=== PATIENT | male | born 1975 | race Caucasian/White ===

== ENCOUNTER 2017-11-26 11:20 | Observation (INO) | payer SELFPAY ==
[~2017-11-26] VITALS: Ht 175.3 cm; Wt 82.0 kg
[~2017-11-26 11:20] MED LIST: ALBU8I INH; HYDR-3580 PO; IBUP800 PO
[2017-11-26 11:21] VITALS: BP 172/96; PULSE 89; RESP 17; TEMP 97.6; O2SAT 98
[2017-11-26] MEDS ORDERED: MORPHINE SULFATE 4 MG/ML INJ IV PUSH ONE (11:30)
[2017-11-26] MEDS ORDERED: ONDANSETRON HCL 4 MG/2 ML VIAL IV PUSH ONE (11:30)
[2017-11-26] MEDS ORDERED: XOPEAER4 INH (11:32)
[2017-11-26] MEDS ORDERED: HYDR-3580 PO (11:32)
--- NOTE | 2017-11-26 11:40 | PD ---
HPI Chief Complaint: ENT Complaint Time Seen by Provider: 11:27 Travel History International Travel<30 days: No Contact w/Intl Traveler<30days: No Traveled to known affect area: No History of Present Illness HPI Patient is a 42-year-old male presenting to emergency department for evaluation of pain to his left ear. Patient was sent by urgent care to rule out mastoiditis. Patient states his symptoms started 5 days ago, he reports having a mild head cold. Symptoms started gradually thereafter. Symptom onset was gradual, symptom severity is moderate to severe. Patient denies any fever, chills, nausea, vomiting, headache. He reports his pain is 10 out of 10. PFSH Past Medical History Asthma: Yes Diabetes: No Kidney Stones: Yes Immunizations Current: Yes Past Surgical History Genitourinary Surgery: Yes (LITHROTRIPSY 2009) Thoracic Surgery: Yes (C5, C6) Social History Alcohol Use: Yes (OCCASIONALLY) Tobacco Use: Yes (1 PPD) Substance Use: Yes Allergies-Medications (Allergen,Severity, Reaction): Coded Allergies: latex (Unverified Allergy, Severe, Anaphylaxis, 11/26/17) adhesive (Unverified Allergy, Intermediate, 11/26/17) Uncoded Allergies: CATS (Allergy, Severe, Anaphylaxis, 07/05/16) Reported Meds & Prescriptions Reported Meds & Active Scripts Active Reported Xopenex Hfa 15 GM Inh (Levalbuterol 15 GM Inh) 45 Mcg/Act Aer 45 Mcg INH Q6HR Shake well before using. (1 puff = 45 mcg) Hydrocodone-Acetamin 7.5-325 (Hydrocodone/Acetaminophen) 7.5 Mg-325 Mg Tablet 1 Tab PO Q8HR PRN Review of Systems Except as stated in HPI: all other systems reviewed are Neg General / Constitutional: No: Fever HENT: Positive: Earache, No: Headaches Cardiovascular: No: Chest Pain or Discomfort Respiratory: No: Shortness of Breath Gastrointestinal: No: Nausea, Vomiting, Abdominal Pain Musculoskeletal: Positive: Pain Physical Exam Narrative GENERAL: Well-developed, well-nourished, alert male. Presenting in no acute distress although appears uncomfortable. SKIN: Warm and dry. HEAD: Atraumatic. Normocephalic. EYES: Pupils equal and round. No scleral icterus. No injection or drainage. ENT: No nasal bleeding or discharge. Mucous membranes pink and moist. Bilateral tympanic membranes without erythema. Left outer ear is mildly edematous and erythematous, there is edema and mild erythema noted to the mastoid process and to the left auricle. Significant tenderness palpation over mastoid process on the left. NECK: Trachea midline. No JVD. CARDIOVASCULAR: Regular rate and rhythm. RESPIRATORY: No accessory muscle use. Clear to auscultation. Breath sounds equal bilaterally. Scattered expiratory wheezing in bases. GASTROINTESTINAL: Abdomen soft, non-tender, nondistended. Hepatic and splenic margins not palpable. MUSCULOSKELETAL: Extremities without clubbing, cyanosis, or edema. No obvious deformities. NEUROLOGICAL: Awake and alert. No obvious cranial nerve deficits. Motor grossly within normal limits. Five out of 5 muscle strength in the arms and legs. Normal speech. PSYCHIATRIC: Appropriate mood and affect; insight and judgment normal. Data Data Last Documented VS Vital Signs Date Time Temp Pulse Resp B/P (MAP) Pulse Ox O2 Delivery O2 Flow Rate FiO2 11/26/17 11:21 97.6 89 17 172/96 (121) 98 Orders Orders Complete Blood Count With Diff (11/26/17 11:30) Comprehensive Metabolic Panel (11/26/17 11:30) Iv Access Insert/Monitor (11/26/17 11:30) Morphine Inj (Morphine Inj) (11/26/17 11:30) Ondansetron Inj (Zofran Inj) (11/26/17 11:30) Ibuprofen (Motrin) (11/26/17 11:45) Ct Temporal Bone W Iv Contrast (11/26/17 ) Iohexol 350 Inj (Omnipaque 350 Inj) (11/26/17 12:22) Vancomycin Inj (Vancomycin Inj) (11/26/17 13:30) Consult Ent (11/26/17 ) (Hub Use Only)Inp Phy Cons/Ref (11/26/17 ) Admit To Inpatient (11/26/17 ) Vital Signs (Adult) Q4H (11/26/17 13:48) Activity Oob With Assistance (11/26/17 13:48) Diet Heart Healthy (11/26/17 Lunch) Sodium Chloride 0.9% Flush (Ns Flush) (11/26/17 14:00) Sodium Chloride 0.9% Flush (Ns Flush) (11/26/17 21:00) Acetaminophen (Tylenol) (11/26/17 14:00) Ondansetron Inj (Zofran Inj) (11/26/17 14:00) Scd Bilateral/Knee High PRISCA.BID (11/26/17 13:48) Naloxone Inj (Narcan Inj) (11/26/17 14:00) Magnesium Hydroxide Liq (Milk Of Magnesi (11/26/17 14:00) Sennosides (Senokot) (11/26/17 14:00) Bisacodyl Supp (Dulcolax Supp) (11/26/17 14:00) Inpatient Certification (11/26/17 ) Vancomycin Inj (Vancomycin Inj) (11/26/17 22:00) Vancomycin Consult Pharmacy (Vancomycin (11/26/17 14:00) Admit Order (Ed Use Only) (11/26/17 13:51) Piperacil-Tazo 3.375 Gm Premix (Zosyn 3. (11/26/17 14:00) Labs Laboratory Tests Test 11/26/17 11:46 White Blood Count 10.2 TH/MM3 Red Blood Count 4.68 MIL/MM3 Hemoglobin 17.0 GM/DL Hematocrit 46.8 % Mean Corpuscular Volume 99.9 FL Mean Corpuscular Hemoglobin 36.4 PG Mean Corpuscular Hemoglobin Concent 36.4 % Red Cell Distribution Width 12.7 % Platelet Count 190 TH/MM3 Mean Platelet Volume 9.4 FL Neutrophils (%) (Auto) 68.3 % Lymphocytes (%) (Auto) 21.8 % Monocytes (%) (Auto) 8.4 % Eosinophils (%) (Auto) 0.9 % Basophils (%) (Auto) 0.6 % Neutrophils # (Auto) 6.9 TH/MM3 Lymphocytes # (Auto) 2.2 TH/MM3 Monocytes # (Auto) 0.9 TH/MM3 Eosinophils # (Auto) 0.1 TH/MM3 Basophils # (Auto) 0.1 TH/MM3 CBC Comment AUTO DIFF Differential Comment AUTO DIFF CONFIRMED Blood Urea Nitrogen 7 MG/DL Creatinine 0.79 MG/DL Random Glucose 106 MG/DL Total Protein 7.0 GM/DL Albumin 3.6 GM/DL Calcium Level 8.9 MG/DL Alkaline Phosphatase 92 U/L Aspartate Amino Transf (AST/SGOT) 22 U/L Alanine Aminotransferase (ALT/SGPT) 32 U/L Total Bilirubin 1.3 MG/DL Sodium Level 135 MEQ/L Potassium Level 3.6 MEQ/L Chloride Level 103 MEQ/L Carbon Dioxide Level 27.0 MEQ/L Anion Gap 5 MEQ/L Estimat Glomerular Filtration Rate 108 ML/MIN MDM Medical Decision Making Medical Screen Exam Complete: Yes Emergency Medical Condition: Yes Interpretation(s) Vital Signs Date Time Temp Pulse Resp B/P (MAP) Pulse Ox O2 Delivery O2 Flow Rate FiO2 11/26/17 11:21 97.6 89 17 172/96 (121) 98 Differential Diagnosis Otitis externa versus abscess versus mastoiditis versus other Narrative Course Patient is a 42-year-old male presenting for evaluation of left ear pain. CT scan labs ordered and pending. IV access established, patient declined morphine and requested ibuprofen instead. CT scan shows a multiloculated rim-enhancing mass in the postauricular auricular soft tissues on the left identified characteristic of abscess with surrounding induration and edema of the subcutaneous tissue. Also noted is otitis externa, temporal bone is normal and there is no evidence of mastoiditis. CBC is unremarkable, chemistry with no acute findings. ENT paged. Vancomycin 1 g IV [address] Hess returned page. He stated he would see patient in the morning and to cover him for MRSA regarding abx therapy. Stated possible necrotic lymph node. Dr. Liu accepted admit, orders placed. Diagnosis Primary Impression: Abscess of postauricular region Admitting Information Admitting Physician Requests: Admit Condition: Stable Natacha Le Nov 26, 2017 11:40
[2017-11-26] MEDS ORDERED: IBUPROFEN 800 MG TAB PO ONE (11:45)
[2017-11-26 11:59] LABS: AUTOMATED NEUTROPHIL # 6.9 TH/MM3 (1.8-7.7); BASOPHIL # 0.1 TH/MM3 (0-0.2); BASOPHIL % 0.6 % (0.0-2.0); EOSINOPHIL # 0.1 TH/MM3 (0-0.4); EOSINOPHIL % 0.9 % (0.0-4.0); HEMATOCRIT 46.8 % (39.0-51.0); LYMPH % 21.8 % (9.0-44.0); LYMPHOCYTE # 2.2 TH/MM3 (1.0-4.8); MEAN CELL VOLUME 99.9 FL (80.0-100.0); MEAN CORPUSCULAR HEMOGLOBIN 36.4 PG (27.0-34.0); MEAN CORPUSCULAR HGB CONC 36.4 % (32.0-36.0); MEAN PLATELET VOLUME 9.4 FL (7.0-11.0); MONO % 8.4 % (0.0-8.0); MONOCYTE # 0.9 TH/MM3 (0-0.9); NEUT % 68.3 % (16.0-70.0); PLATELET COUNT 190 TH/MM3 (150-450); RED BLOOD COUNT 4.68 MIL/MM3 (4.50-5.90); RED CELL DISTRIBUTION WIDTH 12.7 % (11.6-17.2); WHITE BLOOD COUNT 10.2 TH/MM3 (4.0-11.0)
[2017-11-26 12:10] LABS: ALBUMIN 3.6 GM/DL (3.4-5.0); ALT (GPT) 32 U/L (12-78); AST (GOT) 22 U/L (15-37); BLOOD UREA NITROGEN 7 MG/DL (7-18); CALCIUM 8.9 MG/DL (8.5-10.1); CHLORIDE 103 MEQ/L (98-107); CREATININE 0.79 MG/DL (0.60-1.30); GLOMERULAR FILTRATION RATE 108 ML/MIN (>89); GLUCOSE,RANDOM 106 MG/DL (74-106); SODIUM (NA) 135 MEQ/L (136-145)
[2017-11-26 12:12] LABS: ALKALINE PHOSPHATASE 92 U/L (45-117); TOTAL BILIRUBIN ADULT 1.3 MG/DL (0.2-1.0)
[2017-11-26] MEDS ORDERED: IOHEXOL 350 MG/ML 10 ML VIAL (for RAD DIAG) IVCONTRAST ONE (12:22)
--- NOTE | 2017-11-26 12:45 | RADRPT ---
EXAM DATE/TIME: 11/26/2017 12:14 [facility] COMPARISON: No previous studies available for comparison. INDICATIONS : Left ear swollen and red, otitis externa; evaluate for mastoiditis. IV CONTRAST: 50 cc Omnipaque 350 (iohexol) IV RADIATION DOSE: 35.59 CTDIvol (mGy) MEDICAL HISTORY : None SURGICAL HISTORY : Chest, lithotripsy ENCOUNTER: Initial ACUITY: 4 - 6 days PAIN SCALE: 7/10 LOCATION: Left ear TECHNIQUE: Volumetric scanning of the temporal bone was performed. Using automated exposure control and adjustm ent of the mA and/or kV according to patient size, radiation dose was kept as low as reasonably achie vable to obtain optimal diagnostic quality images. DICOM format image data is available electronicall y for review and comparison. FINDINGS: OSSICLES: The ossicles are intact. The oval window niche is intact. MASTOID AIR CELLS: Well aerated. No sclerotic or opacified air cells are seen. The aditus is intact. MIDDLE EAR: The epitympanum and hypotympanum are intact. Prussak's space and scutum are intact. The oval and rou nd window is intact. LABYRINTH: The cochlea and semicircular canals are normal in configuration without sclerosis. INTERNAL ACOUSTIC CANAL: Normal in size without erosion. The cerebellar-pontine angle is intact. JUGULAR FOSSA: Normal in size and position. FACIAL CANAL: The tympanic, genu and descending portions are intact. EXTERNAL ACOUSTIC CANAL: The bony and cartilaginous portions are intact. There is some soft tissue thickening of the external auditory canal superiorly extending medially to the medial aspect of the EAC. This is consistent with the history of otitis externa. There is a multiloculated rim-enhancing mass just lateral to the left mastoid and postauricular region with surrounding edema and stranding of the subcutaneous fat. This measures 3.3 x 2.5 cm in AP and transverse dimension on axial image 46 of series 4. It extends inferi yesica and is just posterior to the superior margin of the parotid gland. This is consistent with absce ss. OTHER: There are posterior changes and postsurgical changes of the left maxillary sinus status post antrosto my and uncinectomy with circumferential mucosal thickening identified. The paranasal sinuses are othe rwise well aerated. CONCLUSION: 1. A multiloculated rim-enhancing mass in the postauricular and periauricular soft tissues on the lef t identified characteristic of abscess with surrounding induration and edema of the subcutaneous tiss ues. 2. Otitis externa. 3. The temporal bone is normal. There is no evidence for mastoiditis. Amador Dangelo MD on November 26, 2017 at 12:39 Board Certified Radiologist. This report was verified electronically.
[2017-11-26] MEDS ORDERED: VANCOMYCIN INJ 1,000 MG in SODIUM CHLOR 0.9% 250 ML INJ 250 ML IV ONE (13:30)
[2017-11-26] MEDS ORDERED: PIPERACIL-TAZO 3.375 GM PREMIX 50 ML IV ONE (14:00)
[2017-11-26] MEDS ORDERED: BISACODYL 10 MG SUPP RECTAL PRN ×2 (14:00→14:30)
[2017-11-26] MEDS ORDERED: MAGNESIUM HYDROXIDE SUSP 30 ML CUP PO PRN ×2 (14:00→14:30)
[2017-11-26] MEDS ORDERED: SENNOSIDES 8.6 MG TAB PO PRN ×2 (14:00→14:30)
[2017-11-26] MEDS ORDERED: NALOXONE HCL 0.4 MG/ML AMP IV PUSH PRN ×2 (14:00→14:30)
[2017-11-26] MEDS ORDERED: ACETAMINOPHEN 325 MG TAB PO PRN ×2 (14:00→14:30)
[2017-11-26] MEDS ORDERED: ONDANSETRON HCL 4 MG/2 ML VIAL IVP PRN ×2 (14:00→14:30)
[2017-11-26] MEDS ORDERED: SODIUM CHLORIDE 0.9% FLUSH 10 ML FLUSH IV FLUSH PRN ×2 (14:00→14:30)
[2017-11-26] MEDS ORDERED: Vancomycin Consult Pharmacy 1 EA OTHER SCH ×2 (14:00→14:30)
--- NOTE | 2017-11-26 14:32 | HHI.HP ---
[facility] No Primary Care Physician Admission Diagnosis Postauricular abscess Diagnoses: Chief Complaint: Left ear pain Travel History International Travel<30 Days: No Contact w/Intl Traveler <30 Da: No Traveled to Known Affected Are: No History of Present Illness This is a 42-year-old male past medical history of asthma who presented with left ear pain. Patient stated that about 4 days ago he had some allergic rhinitis and sinus issues that he thought got better. Unfortunately he stated that his left ear pain continued so went to goes to urgent care and was told to come to the hospital for possible mastoiditis. Patient denies any fevers or chills. Denies any discharge from the ear. He stated that there is left ear pain and swelling. Patient has no other complaints. All other review of system reviewed and negative. Past Family Social History Past Medical History Asthma, persistent Past Surgical History Cervical surgery Left ankle surgery Left knee surgery Spinal surgery Reported Medications Reported Xopenex Hfa 15 GM Inh (Levalbuterol 15 GM Inh) 45 Mcg/Act Aer 45 Mcg INH Q6HR Shake well before using. (1 puff = 45 mcg) Hydrocodone-Acetamin 7.5-325 (Hydrocodone/Acetaminophen) 7.5 Mg-325 Mg Tablet 1 Tab PO Q8HR PRN Allergies: Coded Allergies: latex (Unverified Allergy, Severe, Anaphylaxis, 11/26/17) adhesive (Unverified Allergy, Intermediate, 11/26/17) Uncoded Allergies: CATS (Allergy, Severe, Anaphylaxis, 07/05/16) Active Ordered Medications Current Medications Morphine Sulfate (Morphine Inj) 4 mg ONCE ONCE IV PUSH ; Start 11/26/17 at 11:30 ; Stop 11/26/17 at 14:11; Status DC Ondansetron HCl (Zofran Inj) 4 mg ONCE ONCE IV PUSH ; Start 11/26/17 at 11:30; Stop 11/26/17 at 14:11; Status DC Ibuprofen (Motrin) 800 mg ONCE ONCE PO Last administered on 11/26/17at 11:54; Start 11/26/17 at 11:45; Stop 11/26/17 at 14:11; Status DC Iohexol (Omnipaque 350 Inj) 50 ml STK-MED ONCE IVCONTRAST Last administered on 11/26/17at 12:22; Start 11/26/17 at 12:22; Stop 11/26/17 at 14:11; Status DC Vancomycin HCl 1000 mg/Sodium Chloride 250 ml @ 250 mls/hr ONCE ONCE IV Last administered on 11/26/17at 14:02; Start 11/26/17 at 13:30; Stop 11/26/17 at 14:11; Status DC Sodium Chloride (NS Flush) 2 ml UNSCH PRN IV FLUSH FLUSH AFTER USING IV ACCESS ; Start 11/26/17 at 14:00; Stop 11/26/17 at 14:11; Status DC Sodium Chloride (NS Flush) 2 ml BID IV FLUSH ; Start 11/26/17 at 21:00; Stop 11/26 at 21:00; Status DC Acetaminophen (Tylenol) 650 mg Q4H PRN PO TEMP > 100.4; Start 11/26/17 at 14:00 ; Stop 11/26/17 at 14:11; Status DC Ondansetron HCl (Zofran Inj) 4 mg Q6H PRN IVP NAUSEA OR VOMITING; Start at 14:00; Stop 11/26/17 at 14:11; Status DC Naloxone HCl (Narcan Inj) 0.4 mg UNSCH PRN IV PUSH SEE LABEL COMMENTS; Start at 14:00; Stop 11/26/17 at 14:11; Status DC Magnesium Hydroxide (Milk Of Magnesia Liq) 30 ml Q12H PRN PO Mild constipation ; Start 11/26/17 at 14:00; Stop 11/26/17 at 14:11; Status DC Sennosides (Senokot) 17.2 mg Q12H PRN PO Moderate constipation; Start 11/26/17 at 14:00; Stop 11/26/17 at 14:11; Status DC Bisacodyl (Dulcolax Supp) 10 mg DAILY PRN RECTAL SEVERE CONSITIPATION; Start at 14:00; Stop 11/26/17 at 14:11; Status DC Vancomycin HCl 1000 mg/Sodium Chloride 250 ml @ 250 mls/hr Q12H IV ; Start 11/27 at 02:00; Stop 11/27/17 at 02:00; Status DC Pharmacy Profile Note 0 ml @ 0 mls/hr UNSCH OTHER ; Start 11/26/17 at 14:00; Stop 11/26/17 at 14:11; Status DC Piperacillin Sod/ Tazobactam Sod 50 ml @ 100 mls/hr ONCE ONCE IV ; Start at 14:00; Stop 11/26/17 at 14:11; Status DC Family History Mother history of neck cancer. Dad had a history of esophageal cancer. Social History Smokes 1.5 packs per day since the age of [age] years old. Denies any alcohol or illicit drug use. Physical Exam Vital Signs Vital Signs Date Time Temp Pulse Resp B/P (MAP) Pulse Ox O2 Delivery O2 Flow Rate FiO2 11/26/17 11:21 97.6 89 17 172/96 (121) 98 Physical Exam GENERAL: This is a well-nourished, well-developed patient, in no apparent distress. SKIN: No rashes, ecchymoses or lesions. Cool and dry. HEAD: Atraumatic. Normocephalic. No temporal or scalp tenderness. EYES: Pupils equal round and reactive. Extraocular motions intact. No scleral icterus. No injection or drainage. ENT: Nose without bleeding, purulent drainage or septal hematoma. Throat without erythema, tonsillar hypertrophy or exudate. Uvula midline. Airway patent. B/L OM WNL clear. Bilateral external ear canal no discharge. Mild erythema in the left ear canal. Swelling and erythema with induration in the periauricular area. NECK: Trachea midline. No JVD or lymphadenopathy. Supple, nontender, no meningeal signs. CARDIOVASCULAR: Regular rate and rhythm without murmurs, gallops, or rubs. RESPIRATORY: Clear to auscultation. Breath sounds equal bilaterally. No wheezes , rales, or rhonchi. GASTROINTESTINAL: Abdomen soft, non-tender, nondistended. No hepato-splenomegaly , or palpable masses. No guarding. MUSCULOSKELETAL: Extremities without clubbing, cyanosis, or edema. No joint tenderness, effusion, or edema noted. No calf tenderness. Negative Homans sign bilaterally. NEUROLOGICAL: Awake and alert. Cranial nerves II through XII intact. Motor and sensory grossly within normal limits. Five out of 5 muscle strength in all muscle groups. Normal speech. Laboratory Laboratory Tests Test 11/26/17 11:46 White Blood Count 10.2 Red Blood Count 4.68 Hemoglobin 17.0 Hematocrit 46.8 Mean Corpuscular Volume 99.9 Mean Corpuscular Hemoglobin 36.4 Mean Corpuscular Hemoglobin Concent 36.4 Red Cell Distribution Width 12.7 Platelet Count 190 Mean Platelet Volume 9.4 Neutrophils (%) (Auto) 68.3 Lymphocytes (%) (Auto) 21.8 Monocytes (%) (Auto) 8.4 Eosinophils (%) (Auto) 0.9 Basophils (%) (Auto) 0.6 Neutrophils # (Auto) 6.9 Lymphocytes # (Auto) 2.2 Monocytes # (Auto) 0.9 Eosinophils # (Auto) 0.1 Basophils # (Auto) 0.1 CBC Comment AUTO DIFF Differential Comment AUTO DIFF CONFIRMED Blood Urea Nitrogen 7 Creatinine 0.79 Random Glucose 106 Total Protein 7.0 Albumin 3.6 Calcium Level 8.9 Alkaline Phosphatase 92 Aspartate Amino Transf (AST/SGOT) 22 Alanine Aminotransferase (ALT/SGPT) 32 Total Bilirubin 1.3 Sodium Level 135 Potassium Level 3.6 Chloride Level 103 Carbon Dioxide Level 27.0 Anion Gap 5 Estimat Glomerular Filtration Rate 108 Result Diagram: 11/26/17 1146 11/26/17 1146 Imaging Last Impressions Temporal Bone CT 11/26/17 0000 Signed Impressions: Service Date/Time: Sunday, November 26, 2017 12:14 - CONCLUSION: 1. A multiloculated rim-enhancing mass in the postauricular and periauricular soft tissues on the left identified characteristic of abscess with surrounding induration and edema of the subcutaneous tissues. 2. Otitis externa. 3. The temporal bone is normal. There is no evidence for mastoiditis. Amador Dangelo MD Caprini VTE Risk Assessment Caprini VTE Risk Assessment: No/Low Risk (score <= 1) Caprini Risk Assessment Model Point Value = 1 Point Value = 2 Point Value = 3 Point Value = 5 Age 41-60 Minor surgery BMI > 25 kg/m2 Swollen legs Varicose veins or History of unexplained or recurrent spontaneous Oral contraceptives or hormone replacement Sepsis (< 1 month) Serious lung disease, including pneumonia (< 1 month) Abnormal pulmonary function Acute myocardial infarction Congestive heart failure (< 1 month) History of inflammatory bowel disease Medical patient at bed rest Age 61-74 Arthroscopic surgery Major open surgery (> 45 min) Laparoscopic surgery (> 45 min) Malignancy Confined to bed (> 72 hours) Immobilizing plaster cast Central venous access Age >= 75 History of VTE Family history of VTE Factor V Leiden Prothrombin [id number] Lupus anticoagulant Anticardiolipin antibodies Elevated serum homocysteine Heparin-induced thrombocytopenia Other congenital or acquired thrombophilia Stroke (< 1 month) Elective arthroplasty Hip, pelvis, or leg fracture Acute spinal cord injury (< 1 month) Prophylaxis Regimen Total Risk Factor Score Risk Level Prophylaxis Regimen 0-1 Low Early ambulation 2 Moderate Order ONE of the following: *Sequential Compression Device (SCD) *Heparin 5000 units SQ BID 3-4 Higher Order ONE of the following medications: *Heparin 5000 units SQ TID *Enoxaparin/Lovenox 40 mg SQ daily (WT < 150 kg, CrCl > 30 mL/min) *Enoxaparin/Lovenox 30 mg SQ daily (WT < 150 kg, CrCl > 10-29 mL/min) *Enoxaparin/Lovenox 30 mg SQ BID (WT < 150 kg, CrCl > 30 mL/min) AND/OR *Sequential Compression Device (SCD) 5 or more Highest Order ONE of the following medications: *Heparin 5000 units SQ TID (Preferred with Epidurals) *Enoxaparin/Lovenox 40 mg SQ daily (WT < 150 kg, CrCl > 30 mL/min) *Enoxaparin/Lovenox 30 mg SQ daily (WT < 150 kg, CrCl > 10-29 mL/min) *Enoxaparin/Lovenox 30 mg SQ BID (WT < 150 kg, CrCl > 30 mL/min) AND *Sequential Compression Device (SCD) Assessment and Plan Assessment and Plan This is a 42-year-old male came in with left ear pain Left periauricular/post auricular abscess/cellulitis -CT scan shows a multiloculated ring enhancing mass in the post auricular and periauricular soft tissue on the left identify characteristic of an abscess with soft tissue swelling/edema. -Patient has no white count or fevers. -He was given a dose of vancomycin and Zosyn in the ED. Dr. Hess ENT notified by ED provider Natacha in which he stated that he will see patient tomorrow morning and to cover for MRSA. -Continue vancomycin. Will have pharmacist dose medication. Persistent asthma -Patient uses Xopenex 1-2 times a day. He stated that he has been on maintenance therapy but does not feel like they work for him. Tobacco dependence -Smoking cessation. Declined nicotine replacement. DVT prophylaxis -Low risk. Encourage ambulation. SCDs. Discussed Condition With patient Mildred Liu MD Nov 26, 2017 14:32
[2017-11-26] MEDS ORDERED: ACETAMINOPHEN/HYDROcodone 325 MG/5 MG TAB PO PRN (14:45)
[2017-11-26 15:00] VITALS: BP 144/83; PULSE 79; RESP 19; O2SAT 97
[2017-11-26] MEDS: SODIUM CHLOR 0.45% 1000 ML INJ 1,000 ML IV SCH (15:39)
[2017-11-26] MEDS: ACETAMINOPHEN/HYDROcodone 325 MG/5 MG TAB PO PRN ×2 (16:56→20:05)
[2017-11-26 20:18] VITALS: BP 154/90; PULSE 87; RESP 18; O2SAT 95
[2017-11-26] MEDS: SODIUM CHLORIDE 0.9% FLUSH 10 ML FLUSH IV FLUSH SCH (20:54)
[2017-11-26] MEDS ORDERED: SODIUM CHLORIDE 0.9% FLUSH 10 ML FLUSH IV FLUSH SCH (21:00)
[2017-11-26] MEDS: VANCOMYCIN INJ 1,000 MG in SODIUM CHLOR 0.9% 250 ML INJ 250 ML IV SCH (21:04)
--- NOTE | 2017-11-26 23:13 | HHI.PR ---
Subjective Remarks NOT SEEN Objective Vitals Vital Signs Date Time Temp Pulse Resp B/P (MAP) Pulse Ox O2 Delivery O2 Flow Rate FiO2 11/26/17 21:07 18 11/26/17 20:18 87 18 154/90 (111) 95 11/26/17 15:52 11/26/17 15:00 79 19 144/83 (103) 97 Room Air 11/26/17 11:21 97.6 89 17 172/96 (121) 98 I/O 11/26/17 11/26/17 11/26/17 11/27/17 11/27/17 11/27/17 07:00 15:00 23:00 07:00 15:00 23:00 Intake Total 250 ml Balance 250 ml Intake IV Total 250 ml Result Diagram: 11/26/17 1146 11/26/17 1146 Imaging Last Impressions Temporal Bone CT 11/26/17 0000 Signed Impressions: Service Date/Time: Sunday, November 26, 2017 12:14 - CONCLUSION: 1. A multiloculated rim-enhancing mass in the postauricular and periauricular soft tissues on the left identified characteristic of abscess with surrounding induration and edema of the subcutaneous tissues. 2. Otitis externa. 3. The temporal bone is normal. There is no evidence for mastoiditis. Amador Dangelo MD Objective Remarks GENERAL: This is a well-nourished, well-developed patient, in no apparent distress. SKIN: No rashes, ecchymoses or lesions. Cool and dry. HEAD: Atraumatic. Normocephalic. No temporal or scalp tenderness. EYES: Pupils equal round and reactive. Extraocular motions intact. No scleral icterus. No injection or drainage. ENT: Nose without bleeding, purulent drainage or septal hematoma. Throat without erythema, tonsillar hypertrophy or exudate. Uvula midline. Airway patent. B/L OM WNL clear. Bilateral external ear canal no discharge. Mild erythema in the left ear canal. Swelling and erythema with induration in the periauricular area. NECK: Trachea midline. No JVD or lymphadenopathy. Supple, nontender, no meningeal signs. CARDIOVASCULAR: Regular rate and rhythm without murmurs, gallops, or rubs. RESPIRATORY: Clear to auscultation. Breath sounds equal bilaterally. No wheezes , rales, or rhonchi. GASTROINTESTINAL: Abdomen soft, non-tender, nondistended. No guarding. MUSCULOSKELETAL: Extremities without clubbing, cyanosis, or edema. No joint tenderness, effusion, or edema noted. No calf tenderness. Negative Homans sign bilaterally. NEUROLOGICAL: Awake and alert. Cranial nerves II through XII intact. Motor and sensory grossly within normal limits. Five out of 5 muscle strength in all muscle groups. Normal speech. A/P Problem List: (1) Abscess of postauricular region ICD Code: L02.811 - Cutaneous abscess of head [any part, except face] Status: Acute Assessment and Plan This is a 42-year-old male came in with left ear pain Left periauricular/post auricular abscess/cellulitis -CT scan shows a multiloculated ring enhancing mass in the post auricular and periauricular soft tissue on the left identify characteristic of an abscess with soft tissue swelling/edema. -Patient has no white count or fevers. -He was given a dose of vancomycin and Zosyn in the ED. Dr. Hess ENT notified by ED provider Natacha in which he stated that he will see patient tomorrow morning and to cover for MRSA. -Continue vancomycin. Will have pharmacist dose medication. Persistent asthma -Patient uses Xopenex 1-2 times a day. He stated that he has been on maintenance therapy but does not feel like they work for him. Tobacco dependence -Smoking cessation. Declined nicotine replacement. DVT prophylaxis -Low risk. Encourage ambulation. SCDs. Wagner Johnson MD Nov 26, 2017 23:13
[2017-11-26] MEDS ORDERED: RESP: ALBUTEROL 0.63 MG/3 ML NEB (PRN) NEB (23:15)
[2017-11-26 23:46] VITALS: BP 144/91; PULSE 77; RESP 18; TEMP 98; O2SAT 96
[2017-11-27] MEDS ORDERED: LEVALBUTEROL 45 MCG INH SCH
[2017-11-27] MEDS ORDERED: VANCOMYCIN INJ 1,000 MG in SODIUM CHLOR 0.9% 250 ML INJ 250 ML IV SCH (02:00)
[2017-11-27 03:26] VITALS: BP 143/91; PULSE 80; RESP 18; TEMP 98.5; O2SAT 98
[2017-11-27] MEDS: ACETAMINOPHEN/HYDROcodone 325 MG/5 MG TAB PO PRN ×3 (05:00→09:44)
[2017-11-27] MEDS: SODIUM CHLOR 0.45% 1000 ML INJ 1,000 ML IV SCH (05:00)
[2017-11-27 08:00] VITALS: BP 146/94; PULSE 78; RESP 18; TEMP 97.2; O2SAT 96
[2017-11-27] MEDS ORDERED: MORPHINE SULFATE 2 MG/ML INJ IV ONE (08:30)
--- NOTE | 2017-11-27 09:35 | MB ---
cc: Angel Hess MD DATE OF CONSULT: CHIEF COMPLAINT: Left ear pain. HISTORY OF PRESENT ILLNESS: This is a 42-year-old male with significant worsening left ear pain over the last few days. He noticed yesterday evening it got significantly swollen and is very tender and painful to the touch and therefore went to the emergency room. On workup in the emergency room, he was noted to have a questionable postauricular abscess and otitis externa. The patient had been tried on antibiotics from the urgent care, but at this point the worsening pain was significant enough to bring him in to the emergency room PAST MEDICAL HISTORY, PAST SURGICAL HISTORY, FAMILY HISTORY, ALLERGIES AND MEDICATIONS: Were reviewed per the chart. PHYSICAL EXAMINATION: Today, the patient is alert and oriented x 3, in no acute distress. He has significant pain along his left ear. HEENT: He shows mostly a face left postauricular crease inferiorly. The mastoid tip itself is actually firm and nontender, but his auricle as well as the postauricular area is very tender. There is some purulent kind of a head to the left postauricular area. The external auditory canal is slightly edematous. CT scan reviewed, showed a left multiloculated postauricular soft tissue fluid collection. The mastoid tip and bone was intact. There was no bony erosion noted. ASSESSMENT AND PLAN: Patient with what I suspect to be an insect bite of the left postauricular area. A small incision and drainage was performed of this today at bedside. The patient tolerated it well. Approximately 2 mL of pus was evacuated. The patient did well with this. At this time, I have recommended that he get 24 hours total of intravenous antibiotic as well as discharge with Bactrim DS and follow up at the ENT clinic this week for further evaluation and treatment options. Angel Hess MD ATT/TI , 09:04 AM , 09:34 AM
[2017-11-27] MEDS: SODIUM CHLORIDE 0.9% FLUSH 10 ML FLUSH IV FLUSH SCH (10:27)
[2017-11-27] MEDS: VANCOMYCIN INJ 1,000 MG in SODIUM CHLOR 0.9% 250 ML INJ 250 ML IV SCH (10:27)
--- NOTE | 2017-11-27 12:41 | HHI.PR ---
Subjective Remarks Follow-up left ear cellulitis/abscess. Tolerated bedside I and D. He wants to go home. Discussed with nursing Objective Vitals Vital Signs Date Time Temp Pulse Resp B/P (MAP) Pulse Ox O2 Delivery O2 Flow Rate FiO2 11/27/17 08:00 97.2 78 18 146/94 (111) 96 11/27/17 06:02 18 11/27/17 03:26 98.5 80 18 143/91 (108) 98 11/26/17 23:46 98.0 77 18 144/91 (108) 96 11/26/17 20:18 87 18 154/90 (111) 95 11/26/17 15:52 11/26/17 15:00 79 19 144/83 (103) 97 Room Air I/O 11/26/17 11/26/17 11/26/17 11/27/17 11/27/17 11/27/17 07:00 15:00 23:00 07:00 15:00 23:00 Intake Total 250 ml 2300 ml 250 ml Balance 250 ml 2300 ml 250 ml Intake Oral 300 ml IV Total 250 ml 2000 ml 250 ml Result Diagram: 11/26/17 1146 11/26/17 1146 Imaging Last Impressions Temporal Bone CT 11/26/17 0000 Signed Impressions: Service Date/Time: Sunday, November 26, 2017 12:14 - CONCLUSION: 1. A multiloculated rim-enhancing mass in the postauricular and periauricular soft tissues on the left identified characteristic of abscess with surrounding induration and edema of the subcutaneous tissues. 2. Otitis externa. 3. The temporal bone is normal. There is no evidence for mastoiditis. Amador Dangelo MD Objective Remarks GENERAL: This is a well-nourished, well-developed patient, in no apparent distress. SKIN: No rashes, ecchymoses or lesions. Cool and dry. HEAD: Atraumatic. Normocephalic. No temporal or scalp tenderness. EYES: Pupils equal round and reactive. Extraocular motions intact. No scleral icterus. No injection or drainage. ENT: Nose without bleeding, purulent drainage or septal hematoma. Throat without erythema, tonsillar hypertrophy or exudate. Uvula midline. Airway patent. B/L OM WNL clear. Bilateral external ear canal no discharge. Mild erythema in the left ear canal. Swelling and erythema with induration in the periauricular area. NECK: Trachea midline. No JVD or lymphadenopathy. Supple, nontender, no meningeal signs. CARDIOVASCULAR: Regular rate and rhythm without murmurs, gallops, or rubs. RESPIRATORY: Clear to auscultation. Breath sounds equal bilaterally. No wheezes , rales, or rhonchi. GASTROINTESTINAL: Abdomen soft, non-tender, nondistended. No guarding. MUSCULOSKELETAL: Extremities without clubbing, cyanosis, or edema. No joint tenderness, effusion, or edema noted. No calf tenderness. Negative Homans sign bilaterally. NEUROLOGICAL: Awake and alert. Cranial nerves II through XII intact. Motor and sensory grossly within normal limits. Five out of 5 muscle strength in all muscle groups. Normal speech. Procedures Bedside incision and drainage of left pinna abscess A/P Problem List: (1) Abscess of postauricular region ICD Code: L02.811 - Cutaneous abscess of head [any part, except face] Status: Acute Assessment and Plan This is a 42-year-old male came in with left ear pain Left periauricular/post auricular abscess/cellulitis/OE status post bedside incision and drainage. He is stable continue pain management consult regarding narcotics and antimicrobials. ENT recommended IV vancomycin for a total of 24 hours then discharged on Bactrim follow-up with ENT this week. Persistent asthma. Stable Tobacco dependence. Stable DVT prophylaxis. Low risk. Encourage ambulation. SCDs. Discharge Planning Discharge patient to home Condition on discharge: Improved Regular Diet as tolerated Ad Nuha activity no driving Rx written: Bactrim Follow-up with primary care physician and ENT Wagner Johnson MD Nov 27, 2017 12:41 Gary Gabriel Nov 27, 2017 13:14
[2017-11-27] MEDS ORDERED: BACT800T5 PO (13:01)
--- NOTE | 2017-11-27 13:02 | HHI.DCPOC ---
Discharge Care Plan Diagnosis: (1) Abscess of postauricular region (2) Tobacco use Your Health Problems Are: Anxiety Inflammation Swelling Goals to Promote Your Health * To prevent worsening of your condition and complications * To maintain your health at the optimal level Directions to Meet Your Goals Take your medications as prescribed Follow your dietary instruction Follow activity as directed Keep your appointments as scheduled Take your immunizations and boosters as scheduled If your symptoms worsen call your PCP, if no PCP go to Urgent Care Center or Emergency Room Smoking is Dangerous to Your Health. Avoid second hand smoke Call the 24-hour hour crisis hotline for domestic abuse at Gary Gabriel Nov 27, 2017 1:02 pm
[2017-11-27] MEDS ORDERED: HYDR-3578 PO (13:38)
[2017-11-28] MEDS ORDERED: PHARMACY ORDERED LAB ONE (09:45)
== END 2017-11-27 14:18 | disposition home or self-care (01) ==
LOC: NEPE 11:20 → NEDA 13:53 → INTOOBSV 13:53 → NEPHCDU 16:50
PROVIDERS: ADMIT Internal Medicine; ATTEND Internal Medicine
DX: H60.02 Abscess of left external ear (principal); H60.12 Cellulitis of left external ear; F41.9 Anxiety disorder, unspecified; J45.909 Unspecified asthma, uncomplicated; F17.210 Nicotine dependence, cigarettes, uncomplicated; Z87.442 Personal history of urinary calculi
CPT/HCPCS: 70481; 80053; 85025; 96361; 96365; 96366; 96375; 96376; G0378; J2270; J3370; J7050; Q9967

== ENCOUNTER 2018-03-14 10:07 | Emergency (ER) | payer SELFPAY ==
[~2018-03-14] VITALS: Ht 175.3 cm; Wt 87.0 kg
[~2018-03-14 10:07] MED LIST changes: -ALBU8I INH; +BACT800T5 PO; +HYDR-3578 PO; -HYDR-3580 PO; -IBUP800 PO; +XOPEAER4 INH
[2018-03-14 10:09] VITALS: BP 163/106; PULSE 101; RESP 16; TEMP 98.3; O2SAT 98
[2018-03-14] MEDS ORDERED: PROM12.54 PO (10:55)
[2018-03-14] MEDS ORDERED: CIPR500T2 PO (10:55)
[2018-03-14] MEDS ORDERED: SYMB160A INH (10:55)
[2018-03-14] MEDS ORDERED: SODIUM CHLOR 0.9% 1000 ML INJ 1,000 ML IV SCH (11:06)
[2018-03-14] MEDS ORDERED: SODIUM CHLORIDE 0.9% FLUSH 10 ML FLUSH IV FLUSH PRN (11:15)
--- NOTE | 2018-03-14 11:50 | PD ---
HPI Chief Complaint: General Weakness Time Seen by Provider: 11:12 Travel History International Travel<30 days: No Contact w/Intl Traveler<30days: No Traveled to known affect area: No History of Present Illness HPI 42-year-old male presents emergency department with generalized weakness, body aches, and recent nausea and vomiting diarrhea, as well as cough. Patient states he was seen by his primary care physician 3 days ago, and had a chest x-ray, which he reports was negative. Patient was placed on Cipro 500 mg twice daily for 10 days as well as prednisone, and Phenergan for his abdominal symptoms. Patient states his abdominal symptoms are improved, now he has a normal appetite, and denies nausea, vomiting, or diarrhea. He continues to have abdominal cramps, but he states overall that is improved. His chief complaint today is generalized body aches, headache, and dizziness. Pain is currently 8 out of 10. He has no specific point of pain. He does have headache in the right posterior head. Patient has history of bilateral postauricular abscesses in the past several months. Patient denies IV drug use. He denies recent travel. He denies significant fever. He does state he has 3 drinks daily. He states his cough is nonproductive. He is a smoker. He is allergic to cats, adhesive, latex. PFSH Past Medical History Asthma: Yes Anxiety: Yes Depression: Yes Cancer: No Cardiovascular Problems: No Diabetes: No Diminished Hearing: No Gastrointestinal Disorders: Yes Gout: Yes Genitourinary: Yes (kindey stones) Immune Disorder: No Kidney Stones: Yes Musculoskeletal: Yes Neurologic: No Psychiatric: No Reproductive: No Respiratory: Yes Immunizations Current: Yes Past Surgical History Genitourinary Surgery: Yes (LITHROTRIPSY 2009) Oral Surgery: Yes Thoracic Surgery: Yes Other Surgery: Yes (dental) Social History Alcohol Use: Yes (2-3 drinks daily) Tobacco Use: Yes (1 PPD) Substance Use: No Allergies-Medications (Allergen,Severity, Reaction): Coded Allergies: latex (Unverified Allergy, Severe, Anaphylaxis, 03/14/18) adhesive (Unverified Allergy, Intermediate, 03/14/18) Uncoded Allergies: CATS (Allergy, Severe, Anaphylaxis, 07/05/16) Reported Meds & Prescriptions Reported Meds & Active Scripts Active Lorcet Hd 10-325 mg (Hydrocodone-Acetaminophen) 10 Mg-325 Mg Tab 1 Tab PO Q6H PRN Reported Symbicort Inh (Budesonide/Formoterol Fumarate) 160-4.5 Mcg/Act Aero 1 Puff INH Q12HR Ciprofloxacin (Ciprofloxacin HCl) 500 Mg Tab 500 Mg PO BID 7 Days Promethazine (Promethazine HCl) 12.5 Mg Tab 25 Mg PO BID PRN Review of Systems Except as stated in HPI: all other systems reviewed are Neg General / Constitutional: Positive: Chills, No: Fever Eyes: No: Visual changes HENT: Positive: Headaches, Lightheadedness, No: Vertigo, Sore Throat, Rhinitis , Rhinorrhea, Congestion, Nosebleed, Neck Stiffness, Neck Pain, Dental Difficulties, Earache Cardiovascular: No: Chest Pain or Discomfort Respiratory: Positive: Cough, No: Shortness of Breath, Wheezing Gastrointestinal: Positive: Abdominal Pain, No: Nausea, Vomiting, Diarrhea, Indigestion, Dysphagia, Loss of Appetite (Mild cramping) Genitourinary: No: Urgency, Frequency, Dysuria Musculoskeletal: Positive: Myalgias, No: Arthralgias, Limited ROM, Pain Skin: No Rash Neurologic: No: Weakness Psychiatric: No: Depression Endocrine: No: Polydipsia Hematologic/Lymphatic: No: Easy Bruising Physical Exam Narrative GENERAL: Patient appears in no obvious distress. SKIN: Warm and dry. Normal color. Normal turgor. No rash. No signs of IV drug use. HEAD: Atraumatic. Normocephalic. Patient has no reproducible pain with palpation or percussion. EYES: Pupils equal and round. No scleral icterus. No injection or drainage. ENT: No nasal bleeding or discharge. Mucous membranes pink and moist. TMs are clear. Pharynx is clear. Airways patent. NECK: Trachea midline. Supple and nontender per CARDIOVASCULAR: Regular rate and rhythm. RESPIRATORY: No accessory muscle use. Clear to auscultation. Breath sounds equal bilaterally. GASTROINTESTINAL: Abdomen soft, non-tender, nondistended. Hepatic and splenic margins not palpable. MUSCULOSKELETAL: Extremities without clubbing, cyanosis, or edema. No obvious deformities. NEUROLOGICAL: Awake and alert. No obvious cranial nerve deficits. Motor grossly within normal limits. Five out of 5 muscle strength in the arms and legs. Normal speech. PSYCHIATRIC: Appropriate mood and affect; insight and judgment normal. Data Data Last Documented VS Vital Signs Date Time Temp Pulse Resp B/P (MAP) Pulse Ox O2 Delivery O2 Flow Rate FiO2 03/14/18 10:09 98.3 101 16 163/106 (125) 98 Orders Orders Complete Blood Count With Diff (03/14/18 11:06) Comprehensive Metabolic Panel (03/14/18 11:06) Lipase (03/14/18 11:06) Prothrombin Time / Inr (Pt) (03/14/18 11:06) Act Partial Throm Time (Ptt) (03/14/18 11:06) Urinalysis - C+S If Indicated (03/14/18 11:06) Iv Access Insert/Monitor (03/14/18 11:06) Ecg Monitoring (03/14/18 11:06) Oximetry (03/14/18 11:06) NPO (03/14/18 11:06) Sodium Chlor 0.9% 1000 Ml Inj (Ns 1000 M (03/14/18 11:06) Sodium Chloride 0.9% Flush (Ns Flush) (03/14/18 11:15) Electrocardiogram (03/14/18 11:06) Lactic Acid (03/14/18 11:19) Chest, Single Ap (03/14/18 ) Blood Culture (03/14/18 11:19) Influenzae A/B Antigen (03/14/18 11:22) Urine Culture (03/14/18 11:40) Acetaminophen (Tylenol) (03/14/18 12:30) Labs Laboratory Tests Test 03/14/18 11:30 03/14/18 11:35 03/14/18 11:40 White Blood Count 12.6 TH/MM3 Red Blood Count 4.62 MIL/MM3 Hemoglobin 16.2 GM/DL Hematocrit 46.9 % Mean Corpuscular Volume 101.6 FL Mean Corpuscular Hemoglobin 35.1 PG Mean Corpuscular Hemoglobin Concent 34.6 % Red Cell Distribution Width 13.1 % Platelet Count 174 TH/MM3 Mean Platelet Volume 9.4 FL Neutrophils (%) (Auto) 76.3 % Lymphocytes (%) (Auto) 15.1 % Monocytes (%) (Auto) 7.5 % Eosinophils (%) (Auto) 0.6 % Basophils (%) (Auto) 0.5 % Neutrophils # (Auto) 9.6 TH/MM3 Lymphocytes # (Auto) 1.9 TH/MM3 Monocytes # (Auto) 0.9 TH/MM3 Eosinophils # (Auto) 0.1 TH/MM3 Basophils # (Auto) 0.1 TH/MM3 CBC Comment DIFF FINAL Differential Comment Prothrombin Time 10.0 SEC Prothromb Time International Ratio 1.0 RATIO Activated Partial Thromboplast Time 23.3 SEC Blood Urea Nitrogen 11 MG/DL Creatinine 0.88 MG/DL Random Glucose 86 MG/DL Total Protein 6.5 GM/DL Albumin 3.6 GM/DL Calcium Level 8.4 MG/DL Alkaline Phosphatase 76 U/L Aspartate Amino Transf (AST/SGOT) 27 U/L Alanine Aminotransferase (ALT/SGPT) 45 U/L Total Bilirubin 0.4 MG/DL Sodium Level 143 MEQ/L Potassium Level 3.7 MEQ/L Chloride Level 107 MEQ/L Carbon Dioxide Level 26.3 MEQ/L Anion Gap 10 MEQ/L Estimat Glomerular Filtration Rate 95 ML/MIN Lipase 164 U/L Lactic Acid Level 1.6 mmol/L Urine Color YELLOW Urine Turbidity HAZY Urine pH 5.0 Urine Specific [place] 1.026 Urine Protein 30 mg/dL Urine Glucose (UA) NEG mg/dL Urine Ketones TRACE mg/dL Urine Occult Blood MOD Urine Nitrite NEG Urine Bilirubin NEG Urine Urobilinogen 2.0 mg/dL Urine Leukocyte Esterase SMALL Urine RBC /hpf Urine WBC 33 /hpf Urine Squamous Epithelial Cells <1 /hpf Microscopic Urinalysis Comment CULTURE INDICATED MDM Medical Decision Making Medical Screen Exam Complete: Yes Emergency Medical Condition: Yes Medical Record Reviewed: Yes Differential Diagnosis Viral syndrome. Myalgia. Reaction to ciprofloxacin. Pneumonia. Influenza. Narrative Course Patient appears medically stable at time of exam. Labs ordered including CBC, CMP, lipase, urinalysis, CRP, CK-MB, lactic acid, blood cultures 2. Rapid influenza is ordered. Chest x-ray is ordered as well as CT of the head. EKG is ordered. Patient is given 1000 mL normal saline bolus. Rapid influenza is positive for influenza B. Chest x-ray is negative. EKG is canceled, lipase is canceled, CRP, CK-MB, blood cultures are all canceled. CBC shows leukocytosis of 12.3. CMP is unremarkable. Urinalysis is suggestive of UTI, and culture is placed. Patient will be placed on Bactrim DS twice daily for 7 days. This is for the urine infection Patient is given acetaminophen 1000 mg p.o. now. Discussed with patient that he could possibly benefit from Tamiflu, however I feel he is outside the window. Patient will be treated symptomatically with Tylenol, fluids, and rest. Patient can follow-up if symptoms worsen as needed per Diagnosis Primary Impression: Influenza B Additional Impression: Urinary tract infection Qualified Codes: N30.00 - Acute cystitis without hematuria Patient Instructions: General Instructions, Influenza (DC) Additional Instructions: Rapid influenza is positive for influenza B. Chest x-ray is negative. EKG is canceled, lipase is canceled, CRP, CK-MB, blood cultures are all canceled. CBC shows leukocytosis of 12.3. CMP is unremarkable. Urinalysis is suggestive of UTI, and culture is placed. Patient will be placed on Bactrim DS twice daily for 7 days. This is for the urine infection Patient is given acetaminophen 1000 mg p.o. now. Discussed with patient that he could possibly benefit from Tamiflu, however I feel he is outside the window. Patient will be treated symptomatically with Tylenol, fluids, and rest. Patient can follow-up if symptoms worsen as needed. Med/Other Pt SpecificInfo: Prescription(s) given Disposition: DISCHARGE HOME Condition: Stable Toribio Shaffer Mar 14, 2018 11:50
[2018-03-14 11:53] LABS: AUTOMATED NEUTROPHIL # 9.6 TH/MM3 (1.8-7.7); BASOPHIL # 0.1 TH/MM3 (0-0.2); BASOPHIL % 0.5 % (0.0-2.0); EOSINOPHIL # 0.1 TH/MM3 (0-0.4); EOSINOPHIL % 0.6 % (0.0-4.0); HEMATOCRIT 46.9 % (39.0-51.0); HEMOGLOBIN 16.2 GM/DL (13.0-17.0); LYMPH % 15.1 % (9.0-44.0); LYMPHOCYTE # 1.9 TH/MM3 (1.0-4.8); MEAN CELL VOLUME 101.6 FL (80.0-100.0); MEAN CORPUSCULAR HEMOGLOBIN 35.1 PG (27.0-34.0); MEAN CORPUSCULAR HGB CONC 34.6 % (32.0-36.0); MEAN PLATELET VOLUME 9.4 FL (7.0-11.0); MONO % 7.5 % (0.0-8.0); MONOCYTE # 0.9 TH/MM3 (0-0.9); NEUT % 76.3 % (16.0-70.0); PLATELET COUNT 174 TH/MM3 (150-450); RED BLOOD COUNT 4.62 MIL/MM3 (4.50-5.90); RED CELL DISTRIBUTION WIDTH 13.1 % (11.6-17.2); WHITE BLOOD COUNT 12.6 TH/MM3 (4.0-11.0)
--- NOTE | 2018-03-14 12:01 | RADRPT ---
EXAM DATE: 03/14/2018 11:58 AM EDT AGE/SEX: 42 years / Male INDICATIONS: Weakness. Fever. Dizziness. CLINICAL DATA: This is the patient's initial encounter. Patient reports that signs and symptoms have been present for 2 weeks and indicates a pain score of 2/10. MEDICAL/SURGICAL HISTORY: . Asthma. None. COMPARISON: [facility] – [place], CHEST SINGLE AP, 06/12/2012. . FINDINGS: A single AP view of the chest demonstrates the lungs to be symmetrically aerated without evidence of mass, infiltrate or effusion. The cardiomediastinal contours are unremarkable. Osseous structures a re intact. CONCLUSION: No acute cardiopulmonary process. Electronically signed by: Camilo Narayan MD 03/14/2018 12:00 PM EDT
[2018-03-14 12:12] LABS: BILIRUBIN, URINE NEG (NEG); BLOOD, URINE MOD (NEG); GLUCOSE,URINE NEG (NEG); KETONE, URINE TRACE mg/dL (NEG); NITRITE,URINE NEG (NEG); SQUAMOUS EPITHELIAL CELL URINE <1 /hpf (0-5); URINE COLOR YELLOW (YELLW/STRAW); URINE LEUKOCYTE ESTERASE SMALL (NEG)
[2018-03-14 12:19] LABS: ALBUMIN 3.6 GM/DL (3.4-5.0); ALT (GPT) 45 U/L (12-78); AST (GOT) 27 U/L (15-37); BICARBONATE 26.3 MEQ/L (21.0-32.0); BLOOD UREA NITROGEN 11 MG/DL (7-18); CALCIUM 8.4 MG/DL (8.5-10.1); CHLORIDE 107 MEQ/L (98-107); CREATININE 0.88 MG/DL (0.60-1.30); GLOMERULAR FILTRATION RATE 95 ML/MIN (>89); GLUCOSE,RANDOM 86 MG/DL (74-106); SODIUM (NA) 143 MEQ/L (136-145)
[2018-03-14 12:21] LABS: ALKALINE PHOSPHATASE 76 U/L (45-117); TOTAL BILIRUBIN ADULT 0.4 MG/DL (0.2-1.0); TOTAL PROTEIN 6.5 GM/DL (6.4-8.2)
[2018-03-14] MEDS ORDERED: BACT800T5 PO (12:26)
[2018-03-14] MEDS ORDERED: ACETAMINOPHEN 500 MG CPLT PO ONE (12:30)
--- NOTE | 2018-03-15 18:48 | EKG ---
Date Performed: 03/14/2018 Time Performed: 12:25:28 PTAGE: 42 years EKG: Sinus rhythm INCOMPLETE RIGHT BUNDLE BRANCH BLOCK BORDERLINE ECG Since the PREVIOUS TRACING , no significant change noted PREVIOUS TRACIN02/06/2015 21.53 DOCTOR: Radha Colin Interpretating Date/Time 03/15/2018 18:45:55
== END 2018-03-14 13:29 | disposition home or self-care (01) ==
LOC: NEPD 10:07
DX: J10.1 Influenza due to other identified influenza virus with other respiratory manifestations (principal); N30.00 Acute cystitis without hematuria; I45.10 Unspecified right bundle-branch block; R10.9 Unspecified abdominal pain; J45.909 Unspecified asthma, uncomplicated; F41.9 Anxiety disorder, unspecified; F32.9 Major depressive disorder, single episode, unspecified; F17.200 Nicotine dependence, unspecified, uncomplicated; Z87.442 Personal history of urinary calculi
CPT/HCPCS: 71045; 80053; 81001; 83605; 83690; 85025; 85610; 85730; 87040; 87086; 87804; 93005; 96360; 99285; J7030